=== PATIENT | female | born 1985 | race Caucasian/White ===

== ENCOUNTER 2021-03-14 11:25 | Emergency (ER) | payer OTHER, SELFPAY ==
[2021-03-14 11:41] VITALS: BP 127/83; PULSE 120; RESP 18; TEMP 38.2; O2SAT 99
--- NOTE | 2021-03-14 11:59 | ED.FEMALEGU ---
HPI - Female Genitourinary General Chief complaint: Urogenital-Female Stated complaint: Lower back Pain Source: patient and RN notes reviewed Limitations: no limitations History of Present Illness HPI Narrative: The patient, previously mostly healthy ex for remote history of febrile UTI, presents with urinary symptoms. Patient states that half week history of chills with possible fever, urinary frequency and urgency associated with emesis x1/day diffuse low back pain. No hematuria, dysuria, abdominal pain, vaginal discharge; vital signs remarkable for temperature 100.8, pulse 128-patient declines parenteral therapy. [id number] urinalysis remarkable for nitrate , leukocyte blood all negative Related Data Allergies Allergy/AdvReac Type Severity Reaction Status Date / Time No Known Allergies Allergy Verified 03/14/21 11:41 Review of Systems Review of Systems: General/Constitutional: No weight loss, REPORTS fever Eyes: N0: Redness,discharge Ears/Nose/Throat: No: Epistaxis,ear discharge Respiratory: Denies: Hemoptysis Gastrointestinal: REPORTS vomiting Skin: No Lumps, eruption Neurologic: No Focal Weakness,Sz Hematologic: Denies: Petechiae/Purpura Psychiatric: No: Suicida ideationl All Other Systems: Reviewed and Negative [facility] Comments At time of signature, agree with nursing past medical, surgical, social and family history. There is no relevant family history pertinent to the presenting complaint Exam Narrative: General Appearance: Well appearing, No distress EYE: PERRLA, Conjunctiva clear Ears: External ear normal Nose: Normal nose Mouth/Throat: Normal appearing, Normal lips Neck: Supple Respiratory: Airway patent, No respiratory distress Cardiovascular: Tacky RRR Abdomen: Soft, Non-tender, no specific CVAT Musculoskeletal: Full ROM Skin: Warm, Dry Neurological: A&O x3, CN II-X intact Psychiatric: Normal mood, Normal affect Course Vital Signs Vital signs: Vital Signs Temperature 100.8 F H 03/14/21 11:41 Pulse Rate 120 H 03/14/21 11:41 Respiratory Rate 18 03/14/21 11:41 Blood Pressure 127/83 03/14/21 11:41 Pulse Oximetry 99 03/14/21 11:41 Temperature 100.8 F H 03/14/21 11:41 Pulse Rate 120 H 03/14/21 11:41 Respiratory Rate 18 03/14/21 11:41 Blood Pressure 127/83 03/14/21 11:41 Pulse Oximetry 99 03/14/21 11:41 MDM - Female Genitourinary Lab Data Labs: Urine Glucose Trace Reference Range: Negative Urine Bilirubin 3+ Reference Range: Negative Urine Ketone 2+ Reference Range: Negative Urine Specific [place] 1.030 Reference Range:1.001-1.035 Urine Blood Negative Reference Range: Negative * * Urine pH 6.0 Reference Range: 5.0-9.0 Urine Protein 2+ Reference Range: Negative Urine Urobilinogen 4.0 Reference Range: 0.2-1.0 Urine Nitrate Negative Reference Range: Negative Urine Leukocyte Negative Reference Range: Negative Urine Color [place] Reference Range: Yellow Urine Characteristics Clear Urine Characteristics Clear Disch
== END 2021-03-14 12:06 | disposition home or self-care (01) ==
PROVIDERS: Emergency Provider Emergency Medicine; PCP Nurse Practitioner Family
DX: N39.0 Urinary tract infection, site not specified (principal)
CPT/HCPCS: 81003; 87086; 87088; 99213; G0463